=== PATIENT | male | born 1955 | race Caucasian/White ===

== ENCOUNTER 2017-02-11 19:06 | Inpatient (IN) | payer OTHER ==
[~2017-02-11] VITALS: Ht 177.8 cm; Wt 95.0 kg
[2017-02-11] VITALS (8 sets, daily range): BP systolic 88–112; BP diastolic 51–77; PULSE 55–68; RESP 18–20; TEMP 98; O2SAT 98–100
[~2017-02-11 19:06] MED LIST: ATEN1TAB74 PO; CEPH500C3 PO; DIOV160T60 PO; GLYB5TAB3 PO; METF-324 PO; TRAM50 PO
[2017-02-11] MEDS ORDERED: SODIUM CHLOR 0.9% 1000 ML INJ 1,000 ML IV SCH ×2 (19:25→23:25)
[2017-02-11] MEDS ORDERED: SODIUM CHLORIDE 0.9% FLUSH 10 ML FLUSH IV FLUSH PRN ×2 (19:30→23:30)
[2017-02-11] MEDS ORDERED: MORPHINE SULFATE 4 MG/ML INJ IV PUSH ONE ×2 (19:30→23:00)
[2017-02-11] MEDS ORDERED: ONDANSETRON HCL 4 MG/2 ML VIAL IVP ONE (19:30)
[2017-02-11 19:41] LABS: BASOPHIL # 0.1 TH/MM3 (0-0.2); BASOPHIL % 0.9 % (0.0-2.0); EOSINOPHIL # 0.2 TH/MM3 (0-0.4); HEMATOCRIT 44.5 % (39.0-51.0); HEMO FLAGS DIFF FINAL; LYMPH % 18.8 % (9.0-44.0); LYMPHOCYTE # 1.6 TH/MM3 (1.0-4.8); MEAN CELL VOLUME 93.3 FL (80.0-100.0); MEAN CORPUSCULAR HEMOGLOBIN 31.8 PG (27.0-34.0); MEAN CORPUSCULAR HGB CONC 34.1 % (32.0-36.0); MONO % 9.2 % (0.0-8.0); NEUT % 69.1 % (16.0-70.0); PLATELET COUNT 178 TH/MM3 (150-450); RED BLOOD COUNT 4.77 MIL/MM3 (4.50-5.90); RED CELL DISTRIBUTION WIDTH 15.2 % (11.6-17.2); WHITE BLOOD COUNT 8.6 TH/MM3 (4.0-11.0)
[2017-02-11 19:49] LABS: APTT (PATIENT) 27.8 SEC (24.3-30.1); INTERNATIONAL NORMALIZED RATIO 1.1 RATIO; PROTHROMBIN TIME - PATIENT 12.1 SEC (9.8-11.6)
[2017-02-11 20:05] LABS: ALT (GPT) 22 U/L (12-78)
[2017-02-11 20:07] LABS: ANION GAP 11 MEQ/L (5-15); AST (GOT) 32 U/L (15-37); BICARBONATE 24.4 MEQ/L (21.0-32.0); BLOOD UREA NITROGEN 47 MG/DL (7-18); CHLORIDE 97 MEQ/L (98-107); GLOMERULAR FILTRATION RATE 47 ML/MIN (>89); POTASSIUM 4.9 MEQ/L (3.5-5.1); SODIUM (NA) 132 MEQ/L (136-145)
[2017-02-11 20:08] LABS: ALKALINE PHOSPHATASE 82 U/L (45-117)
--- NOTE | 2017-02-11 20:10 | PD ---
HPI Chief Complaint: Abdominal Pain Time Seen by Provider: 19:25 Travel History International Travel<30 days: No Contact w/Intl Traveler<30days: No Traveled to known affect area: No History of Present Illness HPI Patient is a 61 year old male who comes in complaining of abdominal pain. He was found in triage to have low blood pressure. He says he increased is lactone and Lasix today. He also started Nadolol again today. He says the lips are very dry. He has some nausea, but no vomiting. He says he had to leave work early today due to the pain in his abdomen. He has an umbilical hernia, and he feels like it has gotten harder. He is followed by Dr. Wayne for this. He also has a history of cirrhosis and is following at the [facility] for this. He has not had fever or chills. He denies chest pain or shortness of breath. PFSH Past Medical History Anxiety: Yes Diabetes: Yes Patient Takes Glucophage: No Diminished Hearing: No Hypertension: Yes Medical other: Yes (chirosis of the liver) Tetanus Vaccination: Unknown Influenza Vaccination: Yes Past Surgical History Tonsillectomy: Yes Other Surgery: Yes (LEFT KIDNEY sugery (tube) A CHILD) Social History Alcohol Use: No Tobacco Use: No Substance Use: No Allergies-Medications (Allergen,Severity, Reaction): Coded Allergies: No Known Allergies (Unverified , 12/03/13) Reported Meds & Prescriptions Reported Meds & Active Scripts Active Reported Nadolol 20 Mg Tab 25 Mg PO DAILY Lasix (Furosemide) 40 Mg Tab 40 Mg PO BID Aldactone (Spironolactone) 100 Mg Tab 100 Mg PO BIDPC Review of Systems Except as stated in HPI: all other systems reviewed are Neg General / Constitutional: No: Fever, Chills HENT: No: Headaches, Lightheadedness Cardiovascular: No: Chest Pain or Discomfort Respiratory: No: Shortness of Breath Gastrointestinal: Positive: Nausea, Abdominal Pain, No: Vomiting Genitourinary: No: Dysuria Musculoskeletal: No: Myalgias, Edema Skin: No Rash, No Change in Pigmentation Neurologic: No: Dizziness Physical Exam Narrative GENERAL: Awake and alert, in mild distress due to pain. SKIN: Focused skin assessment warm/dry. HEAD: Atraumatic. Normocephalic. EYES: Pupils equal and round. No scleral icterus. ENT: Mucous membranes pink and moist. NECK: Trachea midline. No JVD. CARDIOVASCULAR: Regular rate and rhythm. No murmur appreciated. RESPIRATORY: No accessory muscle use. Clear to auscultation. Breath sounds equal bilaterally. GASTROINTESTINAL: Abdomen soft, nondistended. Large umbilical hernia, not reducible. Hernia is tender to palpation. MUSCULOSKELETAL: No obvious deformities. No clubbing. No cyanosis. No edema. NEUROLOGICAL: Awake and alert. No obvious cranial nerve deficits. Motor grossly within normal limits. Normal speech. PSYCHIATRIC: Appropriate mood and affect; insight and judgment normal. Data Data Last Documented VS Vital Signs Date Time Temp Pulse Resp B/P Pulse Ox O2 Delivery O2 Flow Rate FiO2 02/11/17 22:57 59 18 105/63 98 Room Air 02/11/17 19:08 98.0 Orders Complete Blood Count With Diff (02/11/17 19:25) Comprehensive Metabolic Panel (02/11/17 19:25) Lactic Acid (02/11/17 19:25) Prothrombin Time / Inr (Pt) (02/11/17 19:25) Act Partial Throm Time (Ptt) (02/11/17 19:25) Urinalysis - C+S If Indicated (02/11/17 19:25) Ua Includes Microscopic (02/11/17 19:25) Ct Abd/Pel W Iv Contrast(Rout) (02/11/17 19:25) Iv Access Insert/Monitor (02/11/17 19:25) Ecg Monitoring (02/11/17 19:25) Oximetry (02/11/17 19:25) Morphine Inj (Morphine Inj) (02/11/17 19:30) Ondansetron Inj (Zofran Inj) (02/11/17 19:30) Sodium Chlor 0.9% 1000 Ml Inj (Ns 1000 M (02/11/17 19:25) Sodium Chloride 0.9% Flush (Ns Flush) (02/11/17 19:30) Troponin I (02/11/17 19:25) Iohexol 350 Inj (Omnipaque 350 Inj) (02/11/17 21:12) Sodium Chlorid 0.9% 500 Ml Inj (Ns 500 M (02/11/17 21:45) Electrocardiogram (02/11/17 19:16) Insert Ng Tube (02/11/17 21:42) Morphine Inj (Morphine Inj) (02/11/17 23:00) Admit Order (Ed Use Only) (02/11/17 ) Admit To Inpatient (02/11/17 ) Vital Signs (Adult) Q4H (02/11/17 23:25) Activity Oob Ad Colleen (02/11/17 23:25) Intake + Output SABRINA.QSHIFT (02/11/17 23:25) Diet Npo (02/12/17 Breakfast) Sodium Chlor 0.9% 1000 Ml Inj (Ns 1000 M (02/11/17 23:25) Sodium Chloride 0.9% Flush (Ns Flush) (02/11/17 23:30) Sodium Chloride 0.9% Flush (Ns Flush) (02/12/17 09:00) Ondansetron Inj (Zofran Inj) (02/11/17 23:30) Basic Metabolic Panel (Bmp) (02/12/17 06:00) Complete Blood Count With Diff (02/12/17 06:00) Scd Bilateral/Knee High SABRINA.BID (02/11/17 23:25) Inpatient Certification (02/11/17 ) Place Ng Tube To Low Intermit (02/11/17 23:25) Morphine Inj (Morphine Inj) (02/11/17 23:30) Levofloxacin 500 Mg Premix Inj (Levaquin (02/12/17 00:00) Metronidazole 500 Mg Inj (Flagyl 500 Mg (02/12/17 00:00) Labs Laboratory Tests Test 02/11/17 19:25 White Blood Count 8.6 TH/MM3 Red Blood Count 4.77 MIL/MM3 Hemoglobin 15.2 GM/DL Hematocrit 44.5 % Mean Corpuscular Volume 93.3 FL Mean Corpuscular Hemoglobin 31.8 PG Mean Corpuscular Hemoglobin 34.1 % Concent Red Cell Distribution Width 15.2 % Platelet Count 178 TH/MM3 Mean Platelet Volume 8.8 FL Neutrophils (%) (Auto) 69.1 % Lymphocytes (%) (Auto) 18.8 % Monocytes (%) (Auto) 9.2 % Eosinophils (%) (Auto) 2.0 % Basophils (%) (Auto) 0.9 % Neutrophils # (Auto) 6.0 TH/MM3 Lymphocytes # (Auto) 1.6 TH/MM3 Monocytes # (Auto) 0.8 TH/MM3 Eosinophils # (Auto) 0.2 TH/MM3 Basophils # (Auto) 0.1 TH/MM3 CBC Comment DIFF FINAL Differential Comment Prothrombin Time 12.1 SEC Prothromb Time International 1.1 RATIO Ratio Activated Partial 27.8 SEC Thromboplast Time Sodium Level 132 MEQ/L Potassium Level 4.9 MEQ/L Chloride Level 97 MEQ/L Carbon Dioxide Level 24.4 MEQ/L Anion Gap 11 MEQ/L Blood Urea Nitrogen 47 MG/DL Creatinine 1.53 MG/DL Estimat Glomerular Filtration 47 ML/MIN Rate Random Glucose 120 MG/DL Lactic Acid Level 1.6 mmol/L Calcium Level 9.6 MG/DL Total Bilirubin 1.0 MG/DL Aspartate Amino Transf 32 U/L (AST/SGOT) Alanine Aminotransferase 22 U/L (ALT/SGPT) Alkaline Phosphatase 82 U/L Troponin I LESS THAN 0.02 NG/ML Total Protein 8.9 GM/DL Albumin 3.1 GM/DL MDM Medical Decision Making Medical Screen Exam Complete: Yes Emergency Medical Condition: Yes Medical Record Reviewed: Yes Differential Diagnosis Strangulated hernia versus incarcerated hernia versus hypotension versus dehydration Narrative Course Patient is a 61-year-old male who comes in complaining of abdominal pain. He has had a hypotensive in triage. He was brought back to a room, IV established , connected to the cafeteria monitor. Patient was given a bolus of IV fluids with improvement of his blood pressure. Exam shows an incarcerated hernia. Labs show no acute abnormalities, Lactic acid is 1.5, WBC count is within normal limits. CT abd/pelvis shows incarcerated hernia with SBO. Last 24 hours Impressions Abdomen/Pelvis CT 02/11/171924 Signed Impressions: Service Date/Time: Saturday, February 11, 2017 20:57 - CONCLUSION: Incarcerated ventral hernia containing fluid and a loop of small bowel with small bowel obstruction. No free air. Trace free fluid. Liver cirrhosis. Nonobstructing left renal calculi. Small left effusion. Jordi Becerra MD I attempted to reduce the hernia with Morphine, without success. I spoke with Dr. Cooper regarding the patient who accepted the patient for admission. Diagnosis Primary Impression: Incarcerated hernia Additional Impression: SBO (small bowel obstruction) Admitting Information Admitting Physician Requests: Admit Condition: Stable Gena Escudero MD Feb 11, 2017 20:10
[2017-02-11] MEDS ORDERED: FURO1TAB60 PO (20:53)
[2017-02-11] MEDS ORDERED: NADO20TA PO (20:53)
[2017-02-11] MEDS ORDERED: ALDA100T PO (20:53)
[2017-02-11] MEDS ORDERED: IOHEXOL 350 MG/ML 10 ML VIAL (for RAD DIAG) IV ONE (21:12)
--- NOTE | 2017-02-11 21:22 | RADRPT ---
EXAM DATE/TIME: 02/11/2017 20:57 [place] COMPARISON: No previous studies available for comparison. INDICATIONS : Diffuse abdominal pain. IV CONTRAST: 90 cc Omnipaque 350 (iohexol) IV ORAL CONTRAST: No oral contrast ingested. RADIATION DOSE: 15.54 CTDIvol (mGy) MEDICAL HISTORY : Hernia, umbilical. Cirrhosis. Hypertension.Diabetes. SURGICAL HISTORY : None. ENCOUNTER: Initial ACUITY: 2 days PAIN SCALE: 9/10 LOCATION: All quadrants. TECHNIQUE: Volumetric scanning of the abdomen and pelvis was performed. Using automated exposure control and ad justment of the mA and/or kV according to patient size, radiation dose was kept as low as reasonably achievable to obtain optimal diagnostic quality images. DICOM format image data is available electro nically for review and comparison. FINDINGS: There is a small left-sided pleural effusion. There is a ventral hernia containing a loop of small bowel and fluid measuring up to about 13 cm in d iameter. This appears to be incarcerated and is associated with a small bowel obstruction. There is d istal decompression of small bowel. The liver is small and slightly nodular characteristic of liver cirrhosis. Spleen is mildly enlarged. Adrenals and right kidney unremarkable. There is mild dilatation of the left renal pelvis but no ure teral or bladder calculi are seen. Nonobstructing calcifications in the upper pole and lower pole lef t kidney measuring up to about a centimeter in diameter. Left renal cyst also present. There is mild anasarca. No free air. Trace free fluid in the abdomen and pelvis. CONCLUSION: Incarcerated ventral hernia containing fluid and a loop of small bowel with small bowel obstruction. No free air. Trace free fluid. Liver cirrhosis. Nonobstructing left renal calculi. Small left effusion. Jordi Becerra MD on February 11, 2017 at 21:15 Board Certified Radiologist. This report was verified electronically.
[2017-02-11] MEDS ORDERED: SODIUM CHLORID 0.9% 500 ML INJ 500 ML IV ONE (21:45)
[2017-02-11] MEDS ORDERED: MORPHINE SULFATE 4 MG/ML INJ IV PUSH PRN (23:30)
[2017-02-11] MEDS ORDERED: ONDANSETRON HCL 4 MG/2 ML VIAL IV PRN (23:30)
[2017-02-11] MEDS: LEVOFLOXACIN 500 MG PREMIX INJ 100 ML IV SCH (23:50)
[2017-02-11 23:57] LABS: BLOOD, URINE NEG (NEG); COMMENT (UR) CULTURE INDICATED; CULTURE IF INDICATED CULTURE INDICATED; GLUCOSE,URINE NEG (NEG); KETONE, URINE 10 mg/dL (NEG); MUCUS URINE FEW /lpf (OCC); NITRITE,URINE NEG (NEG); SQUAMOUS EPITHELIAL CELL URINE <1 /hpf (0-5); URINE COLOR YELLOW (YELLW/STRAW)
[2017-02-12] VITALS (8 sets, daily range): BP systolic 86–115; BP diastolic 58–68; PULSE 54–68; RESP 16–18; TEMP 96.6–98.1; O2SAT 96–100
[2017-02-12] MEDS: metroNIDAZOLE 500 MG INJ 100 ML IV SCH ×3 (01:38→17:05)
[2017-02-12] MEDS ORDERED: POVIDONE IODINE 5% (ANTISEPSIS KIT) 4 APPLICATIONS EACH NARE PRN (04:15)
[2017-02-12] MEDS ORDERED: CHLORHEXIDINE GLUCONATE 2 % 1 PACK (2 CLOTHS) TOPICAL PRN (04:15)
[2017-02-12] MEDS ORDERED: LACTATED RINGER'S 1000 ML IV PRN (04:15)
[2017-02-12] MEDS ORDERED: INSULIN HUMAN REGULAR 1,000 UNITS/10 ML VIAL SQ PRN (04:15)
[2017-02-12] MEDS ORDERED: SODIUM CHLORID 0.9% 500 ML INJ 500 ML IV PRN (04:30)
--- NOTE | 2017-02-12 08:19 | HHI.HP ---
[facility] Service General surgery Primary Care Physician Jose G Steve M.D. 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 reyes who developed incarceration of his umbilical hernia yesterday morning. He was unable to reduce it and developed abdominal pain. He had nausea and small amount of emesis. He has felt constipated and has not passed flatus. He was evaluated in the emergency department in the umbilical hernia was unable to be reduced. His white blood count was normal with evidence of acute kidney injury on chemistry. CT abdomen and pelvis revealed small bowel incarcerated umbilical hernia causing bowel obstruction. There was a small amount of ascites. He has never had any operations on his abdomen. He has child Pena class B cirrhosis. He states that his meld score is 9, although based on today' s labs it is 17. He is followed by Dr. Talavera in [place] as well as at [facility]. He has had 2 elective paracenteses in the past, most recently 6 weeks ago. He has had banding of esophageal varices but never upper GI bleeding. He states that he has lost 200 pounds since his diagnosis of cirrhosis. Review of Systems Constitutional: DENIES: Fever, Chills Eyes: DENIES: Eye inflammation, Eye pain Cardiovascular: DENIES: Chest pain, Palpitations Gastrointestinal: COMPLAINS OF: Abdominal pain, Nausea, Vomiting Musculoskeletal: DENIES: Muscle aches, Stiffness Integumentary: DENIES: Pruritus, Rash Neurologic: DENIES: Seizures, Speech Problems Psychiatric: DENIES: Hallucinations, Agitation Past Family Social History Past Medical History Cirrhosis Esophageal varices History of type 2 diabetes but now off medications after weight loss Past Surgical History Tonsillectomy Reported Medications Reported Meds & Active Scripts Active Reported Nadolol 20 Mg Tab 25 Mg PO DAILY Lasix (Furosemide) 40 Mg Tab 40 Mg PO BID Aldactone (Spironolactone) 100 Mg Tab 100 Mg PO BIDPC Allergies: Coded Allergies: No Known Allergies (Unverified , 12/03/13) Active Ordered Medications Current Medications Medications (Trade) Dose Ordered Sig/Esme Route Start Time Stop Time Status Last Admin (NS 1000 ml Inj) 1,000 ml @ 125 mls/hr Q8H IV 02/11/17 23:25 02/11/17 23:49 (NS Flush) 2 ml UNSCH PRN IV FLUSH 02/11/17 23:30 Sodium Chloride 2 ml 2 ml BID IV FLUSH 02/12/17 09:00 Levofloxacin/ Dextrose 100 ml @ 100 mls/hr Q24H IV 02/12/17 00:00 02/11/17 23:50 (Flagyl 500 Mg Inj) 100 ml @ 100 mls/hr Q8H IV 02/12/17 00:00 02/12/17 01:38 (Zofran Inj) 4 mg Q6H PRN IV 02/11/17 23:30 Morphine Sulfate 2 mg 2 mg Q3H PRN IV PUSH 02/11/17 23:30 Lactated Ringer's 1,000 ml @ 30 mls/hr Q24H PRN IV 02/12/17 04:15 02/15/17 04:14 (NS 500 ml Inj) 500 ml @ 0 mls/hr BOLUS PRN IV 02/12/17 04:30 02/13/17 04:29 02/12/17 04:31 Family History Noncontributory Social History No alcohol tobacco or drug use. Physical Exam Vital Signs Vital Signs Date Time Temp Pulse Resp B/P Pulse Ox O2 Delivery O2 Flow Rate FiO2 02/12/17 08:01 97.8 60 18 115/67 98 02/12/17 05:15 58 106/68 02/12/17 03:25 97.2 68 16 86/59 96 02/12/17 01:00 96.6 62 18 115/67 97 02/12/17 00:41 57 18 92/58 96 02/11/17 23:34 68 18 97/63 98 Room Air 02/11/17 22:57 59 18 105/63 98 Room Air 02/11/17 22:01 58 18 99/63 100 Room Air 02/11/17 21:28 61 18 102/63 100 02/11/17 20:34 57 18 109/60 100 Room Air 02/11/17 20:10 61 18 112/77 100 Room Air 02/11/17 19:16 60 20 91/58 100 02/11/17 19:08 98.0 55 18 88/51 100 Room Air Physical Exam GENERAL: Awake and alert. No acute distress. Cooperative. Obese. HEAD: Normocephalic. Atraumatic. EYES: Pupils equal round and reactive to light bilaterally. No scleral icterus. ENT: Moist oral mucosa. NG tube in place with minimal output. NECK: Trachea midline. CHEST: Lungs clear to auscultation bilaterally with no wheezing or rhonchi. No respiratory distress. CARDIOVASCULAR: Regular rate and rhythm. ABDOMEN: Round with extra redundant skin. Soft and overall nontender. At the umbilicus there's a fairly large incarcerated hernia which is soft and minimally tender but unable to be reduced. There is no erythema of the skin. There is some purple color right at the umbilicus which looks more chronic. EXTREMITIES: No cyanosis or edema. SKIN: Warm, dry, nonjaundiced. Laboratory Laboratory Tests Test 02/11/17 02/11/17 19:25 23:45 White Blood Count 8.6 Red Blood Count 4.77 Hemoglobin 15.2 Hematocrit 44.5 Mean Corpuscular Volume 93.3 Mean Corpuscular Hemoglobin 31.8 Mean Corpuscular Hemoglobin 34.1 Concent Red Cell Distribution Width 15.2 Platelet Count 178 Mean Platelet Volume 8.8 Neutrophils (%) (Auto) 69.1 Lymphocytes (%) (Auto) 18.8 Monocytes (%) (Auto) 9.2 Eosinophils (%) (Auto) 2.0 Basophils (%) (Auto) 0.9 Neutrophils # (Auto) 6.0 Lymphocytes # (Auto) 1.6 Monocytes # (Auto) 0.8 Eosinophils # (Auto) 0.2 Basophils # (Auto) 0.1 CBC Comment DIFF FINAL Differential Comment Prothrombin Time 12.1 Prothromb Time International 1.1 Ratio Activated Partial 27.8 Thromboplast Time Sodium Level 132 Potassium Level 4.9 Chloride Level 97 Carbon Dioxide Level 24.4 Anion Gap 11 Blood Urea Nitrogen 47 Creatinine 1.53 Estimat Glomerular Filtration 47 Rate Random Glucose 120 Lactic Acid Level 1.6 Calcium Level 9.6 Total Bilirubin 1.0 Aspartate Amino Transf 32 (AST/SGOT) Alanine Aminotransferase 22 (ALT/SGPT) Alkaline Phosphatase 82 Troponin I LESS THAN 0.02 Total Protein 8.9 Albumin 3.1 Urine Color YELLOW Urine Turbidity CLEAR Urine pH 7.0 Urine Specific [place] 1.028 Urine Protein TRACE Urine Glucose (UA) NEG Urine Ketones 10 Urine Occult Blood NEG Urine Nitrite NEG Urine Bilirubin NEG Urine Urobilinogen LESS THAN 2.0 Urine Leukocyte Esterase LARGE Urine RBC LESS THAN 1 Urine WBC 31 Urine Squamous Epithelial <1 Cells Urine Mucus FEW Microscopic Urinalysis Comment CULTURE INDICATED Date/Time Procedure Status Source Growth 02/11/17 23:45 Urine Culture Received Urine Clean Catch Pending Result Diagram: 02/11/17192402/11/171924 Imaging Last Impressions Abdomen/Pelvis CT 02/11/171924 Signed Impressions: Service Date/Time: Saturday, February 11, 2017 20:57 - CONCLUSION: Incarcerated ventral hernia containing fluid and a loop of small bowel with small bowel obstruction. No free air. Trace free fluid. Liver cirrhosis. Nonobstructing left renal calculi. Small left effusion. Jrodi Becerra MD Assessment and Plan Assessment and Plan 61-year-old male with a child class B cirrhosis from Gan with incarcerated umbilical hernia causing small bowel obstruction. He has acute kidney injury. Meld score currently is 17. He has had 2 paracenteses in the past and has only minimal ascites on CT scan. Unfortunately, I am unable to reduce the umbilical hernia. He will require umbilical hernia repair. I will excise the umbilicus. I discussed that if bowel is compromised he will require resection. I'll consider mesh placement. I discussed risks in detail bluntly with the patient. He has an approximately 30% mortality as well as increased risk of hernia recurrence, poor healing, infection. He understands and desires to proceed as necessary. Kenneth,Juan Luis DICK Feb 12, 2017 08:19
[2017-02-12 08:25] LABS: AUTOMATED NEUTROPHIL # 5.1 TH/MM3 (1.8-7.7); BASOPHIL % 0.3 % (0.0-2.0); EOSINOPHIL % 0.6 % (0.0-4.0); HEMATOCRIT 42.6 % (39.0-51.0); HEMO FLAGS DIFF FINAL; LYMPH % 11.7 % (9.0-44.0); LYMPHOCYTE # 0.8 TH/MM3 (1.0-4.8); MEAN CELL VOLUME 94.2 FL (80.0-100.0); MEAN CORPUSCULAR HEMOGLOBIN 31.8 PG (27.0-34.0); MEAN CORPUSCULAR HGB CONC 33.8 % (32.0-36.0); MONO % 9.7 % (0.0-8.0); NEUT % 77.7 % (16.0-70.0); PLATELET COUNT 125 TH/MM3 (150-450); RED BLOOD COUNT 4.52 MIL/MM3 (4.50-5.90); RED CELL DISTRIBUTION WIDTH 15.5 % (11.6-17.2); WHITE BLOOD COUNT 6.5 TH/MM3 (4.0-11.0)
[2017-02-12] MEDS: SODIUM CHLORIDE 0.9% FLUSH 10 ML FLUSH IV FLUSH SCH ×2 (09:00→22:23)
[2017-02-12 09:02] LABS: BICARBONATE 26.2 MEQ/L (21.0-32.0); POTASSIUM 4.6 MEQ/L (3.5-5.1)
--- NOTE | 2017-02-12 09:35 | PD.CONS ---
HPI Service [facility] Hospitalists Consult Requested By Primary Care Physician Jose G Steve M.D. 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 Says his most recent Meld score had been 9. 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 yesterday had some vomiting and umbilical pain. did have bm yesterday morning. In ED CT showed obstruction due to incarcerated umbilical hernia. Pt is scheduled for OR today at 11am. His labs show some stacie and he is getting ivf NS 125ml/hr. Denies any sob or fluid retention. Last paracentesis over a month ago and he says 5L removed. Review of Systems Other abdomen pain umbilical hernia more firm vomited. Past Family Social History Past Medical History cirrhosis. nafld. says meld score has been "9" follows with [facility] ER. s/p esophageal varices banding. paracentesis x 2. last one 1 month ago No hx encephalopathy/variceal bleed/sbp umbilical hernia dm 2 in past. off meds for over a year. last bun/cr 19/.7 12[facility] turp for bph Reported Medications Nadolol 20 Mg Tab 25 Mg PO DAILY Lasix (Furosemide) 40 Mg Tab 40 Mg PO BID Aldactone (Spironolactone) 100 Mg Tab 100 Mg PO BIDPC Allergies: Coded Allergies: No Known Allergies (Unverified , 12/03/13) Family History nc Social History no etoh/tob Physical Exam Vital Signs nad oriented heart reg lung cta abd s/nt/bs with occasional high pitched tinkling sound. umbilical hernia noted..nontender. ext no edema Vital Signs Date Time Temp Pulse Resp B/P Pulse Ox O2 Delivery O2 Flow Rate FiO2 02/12/17 08:01 97.8 60 18 115/67 98 02/12/17 05:15 58 106/68 02/12/17 03:25 97.2 68 16 86/59 96 02/12/17 01:00 96.6 62 18 115/67 97 02/12/17 00:41 57 18 92/58 96 02/11/17 23:34 68 18 97/63 98 Room Air 02/11/17 22:57 59 18 105/63 98 Room Air 02/11/17 22:01 58 18 99/63 100 Room Air 02/11/17 21:28 61 18 102/63 100 02/11/17 20:34 57 18 109/60 100 Room Air 02/11/17 20:10 61 18 112/77 100 Room Air 02/11/17 19:16 60 20 91/58 100 02/11/17 19:08 98.0 55 18 88/51 100 Room Air Laboratory Laboratory Tests Test 02/11/17 02/11/17 02/12/17 19:25 23:45 07:44 White Blood Count 8.6 6.5 Red Blood Count 4.77 4.52 Hemoglobin 15.2 14.4 Hematocrit 44.5 42.6 Mean Corpuscular Volume 93.3 94.2 Mean Corpuscular Hemoglobin 31.8 31.8 Mean Corpuscular Hemoglobin 34.1 33.8 Concent Red Cell Distribution Width 15.2 15.5 Platelet Count 178 125 Mean Platelet Volume 8.8 8.7 Neutrophils (%) (Auto) 69.1 77.7 Lymphocytes (%) (Auto) 18.8 11.7 Monocytes (%) (Auto) 9.2 9.7 Eosinophils (%) (Auto) 2.0 0.6 Basophils (%) (Auto) 0.9 0.3 Neutrophils # (Auto) 6.0 5.1 Lymphocytes # (Auto) 1.6 0.8 Monocytes # (Auto) 0.8 0.6 Eosinophils # (Auto) 0.2 0.0 Basophils # (Auto) 0.1 0.0 CBC Comment DIFF FINAL DIFF FINAL Differential Comment Prothrombin Time 12.1 Prothromb Time International 1.1 Ratio Activated Partial 27.8 Thromboplast Time Sodium Level 132 137 Potassium Level 4.9 4.6 Chloride Level 97 102 Carbon Dioxide Level 24.4 26.2 Anion Gap 11 9 Blood Urea Nitrogen 47 44 Creatinine 1.53 1.37 Estimat Glomerular Filtration 47 53 Rate Random Glucose 120 116 Lactic Acid Level 1.6 Calcium Level 9.6 8.9 Total Bilirubin 1.0 Aspartate Amino Transf 32 (AST/SGOT) Alanine Aminotransferase 22 (ALT/SGPT) Alkaline Phosphatase 82 Troponin I LESS THAN 0.02 Total Protein 8.9 Albumin 3.1 Urine Color YELLOW Urine Turbidity CLEAR Urine pH 7.0 Urine Specific [place] 1.028 Urine Protein TRACE Urine Glucose (UA) NEG Urine Ketones 10 Urine Occult Blood NEG Urine Nitrite NEG Urine Bilirubin NEG Urine Urobilinogen LESS THAN 2.0 Urine Leukocyte Esterase LARGE Urine RBC LESS THAN 1 Urine WBC 31 Urine Squamous Epithelial <1 Cells Urine Mucus FEW Microscopic Urinalysis Comment CULTURE INDICATED Date/Time Procedure Status Source Growth 02/11/17 23:45 Urine Culture Received Urine Clean Catch Pending Result Diagram: 02/12/17 0744 02/12/17 0744 Assessment and Plan Problem List: (1) SBO (small bowel obstruction) Status: Acute Plan: Pt is 61 yr old with Nafld Cirrhosis. hx esophageal banding and ascites. Presents with sbo due to umbilical hernia STACIE probably due to dehydration/prerenal cause ( poor po yesterday plus his diuretics were increased over past 2 weeks....both lasix/aldactone) ...monitor for ATN or HRS. ekg: sinus. rbbb. coags ok. plt 125 Going to OR today. Pt understands higher risk due to his underlying cirrhosis. he accepts and wishes to proceed. lower ivf and monitor for volume overload. diuretics on hold bp to low to support his nadolol for now. scds (2) Incarcerated hernia Status: Acute Plan: above (3) Cirrhosis Status: Chronic (4) STACIE (acute kidney injury) Status: Acute Plan: above Wily Stoll MD Feb 12, 2017 09:35
[2017-02-12] MEDS ORDERED: BUPIVACAINE/EPINEPHRINE 0.25% 50 ML VIAL ONE (11:40)
[2017-02-12] MEDS ORDERED: PHENYLEPH/NS 1000 MCG/10 ML SYR IV ONE (12:00)
[2017-02-12] MEDS ORDERED: SODIUM CHLORID 0.9% 500 ML INJ 500 ML IV ONE (12:00)
[2017-02-12] MEDS ORDERED: ePHEDrine/NS 25 MG/5 ML SYR IV ONE (12:00)
[2017-02-12] MEDS ORDERED: PROPOFOL 200 MG/20 ML AMP IV ONE (12:00)
[2017-02-12] MEDS ORDERED: PHENYLEPHRINE HCL 10 MG/ML VIAL IV ONE (12:00)
[2017-02-12] MEDS ORDERED: ONDANSETRON HCL 4 MG/2 ML VIAL IV PUSH ONE (12:00)
[2017-02-12] MEDS ORDERED: SODIUM CHLOR 0.9% 250 ML INJ 250 ML IV ONE (12:00)
[2017-02-12] MEDS ORDERED: fentaNYL CITRATE 250 MCG/5 ML AMP ONE (14:06)
[2017-02-12] MEDS ORDERED: MIDAZOLAM HCL 2 MG/2 ML VIAL ONE (14:06)
--- NOTE | 2017-02-12 15:00 | EKG ---
Date Performed: 02/11/2017 Time Performed: 19:16:41 PTAGE: 61 years EKG: SINUS BRADYCARDIA WITH FIRST DEGREE AV BLOCK INDETERMINATE AXIS RIGHT BUNDLE BRANCH BLOCK W hen compared to previous tracing, right bundle brach block is New. ABNORMAL ECG PREVIOUS TRACING : 09/27/2007 18.25 DOCTOR: Isidro Beasley Interpretating Date/Time 02/12/2017 14:59:53
[2017-02-12] MEDS ORDERED: DO NOT ADM ANY ANTICOAGULANT DRUGS PRN (16:00)
[2017-02-12] MEDS: SODIUM CHLOR 0.9% 1000 ML INJ 1,000 ML IV SCH (22:23)
[2017-02-13] VITALS: BP 103/62; PULSE 64; RESP 16; TEMP 96.9; O2SAT 100
[2017-02-13] MEDS: metroNIDAZOLE 500 MG INJ 100 ML IV SCH ×3 (01:11→17:41)
[2017-02-13] MEDS: LEVOFLOXACIN 500 MG PREMIX INJ 100 ML IV SCH (01:11)
[2017-02-13 04:00] VITALS: BP 109/65; PULSE 66; RESP 18; TEMP 97.5; O2SAT 97
[2017-02-13] MEDS: SODIUM CHLOR 0.9% 1000 ML INJ 1,000 ML IV SCH ×2 (04:57→10:00)
[2017-02-13 07:56] VITALS: BP 104/56; PULSE 71; RESP 18; TEMP 98.4; O2SAT 97
[2017-02-13 08:17] LABS: BICARBONATE 26.3 MEQ/L (21.0-32.0); POTASSIUM 4.7 MEQ/L (3.5-5.1)
[2017-02-13] MEDS: SODIUM CHLORIDE 0.9% FLUSH 10 ML FLUSH IV FLUSH SCH ×2 (09:34→20:29)
--- NOTE | 2017-02-13 09:37 | HHI.PR ---
Subjective Remarks wants to try ice chips no flatus yet Objective Vitals ngt to liws heart reg lung cta abd minimal bs/bandaged over umbilical surgical site ext no edema Vital Signs Date Time Temp Pulse Resp B/P Pulse Ox O2 Delivery O2 Flow Rate FiO2 02/13/17 07:56 98.4 71 18 104/56 97 02/13/17 04:00 97.5 66 18 109/65 97 02/13/17 00:00 96.9 64 16 103/62 100 02/12/17 20:00 97.9 65 16 100/61 98 02/12/17 19:32 Nasal Cannula 2.00 02/12/17 14:52 96.8 61 18 96/60 100 02/12/17 14:40 75 14 95/57 99 Nasal Cannula 2 02/12/17 14:30 98.5 62 13 97/55 100 Nasal Cannula 2 02/12/17 14:15 62 13 107/60 100 Nasal Cannula 2 02/12/17 14:00 98.2 62 16 103/57 98 Nasal Cannula 2 02/12/17 11:00 98.1 54 18 102/65 98 02/12/17 02/12/17 02/13/17 15:00 23:00 07:00 Intake Total 1800 ml 811 ml 531 ml Output Total 725 ml 550 ml 350 ml Balance 1075 ml 261 ml 181 ml Intake Oral 0 ml 0 ml 0 ml IV Total 811 ml 531 ml Other 1800 ml Output Urine Total 675 ml 550 ml 350 ml Gastric Drainage Total 0 ml 0 ml Estimated Blood Loss 50 ml # Voids 2 # Bowel Movements 0 0 0 Result Diagram: 02/12/17 0744 02/13/17 0706 A/P Problem List: (1) SBO (small bowel obstruction) Status: Acute Plan: Pt is 61 yr old with Nafld Cirrhosis. hx esophageal banding and ascites. Presents with sbo due to umbilical hernia STACIE probably due to dehydration/prerenal cause ( poor po yesterday plus his diuretics were increased over past 2 weeks....both lasix/aldactone) ...monitor for ATN or HRS. ekg: sinus. rbbb. coags ok. plt 125 -s/p umbilical incarcerated hernia repair 02/12 doing well post op. renal function improving and pt remains compensated from cardiopulmonary and cirrhosis standpoint. -cont scd's - advance diet per GS -PT and oob today -lower ivf .....diuretics still on hold. monitor for volume overload. (2) Incarcerated hernia Status: Acute Plan: above (3) Cirrhosis Status: Chronic (4) STACIE (acute kidney injury) Status: Acute Plan: above Wily Stoll MD Feb 13, 2017 09:37
[2017-02-13 11:30] VITALS: BP 95/56; PULSE 67; RESP 18; TEMP 97.2; O2SAT 95
--- NOTE | 2017-02-13 13:45 | HHI.PR ---
Subjective Subjective Notes He is feeling well. Minimal ng output. Objective Vitals/I&O Vital Signs Date Time Temp Pulse Resp B/P Pulse Ox O2 Delivery O2 Flow Rate FiO2 02/13/17 11:30 97.2 67 18 95/56 95 02/12/17 19:32 Nasal Cannula 2.00 Labs Laboratory Tests Test 02/13/17 07:06 Sodium Level 138 Potassium Level 4.7 Chloride Level 107 Carbon Dioxide Level 26.3 Anion Gap 5 Blood Urea Nitrogen 32 Creatinine 1.20 Estimat Glomerular Filtration 62 Rate Random Glucose 105 Calcium Level 8.6 Date/Time Procedure Status Source Growth 02/11/17 23:45 Urine Culture - Preliminary Resulted Urine Clean Catch Group D Enterococcus Radiology Last Impressions Abdomen/Pelvis CT 02/11/171924 Signed Impressions: Service Date/Time: Saturday, February 11, 2017 20:57 - CONCLUSION: Incarcerated ventral hernia containing fluid and a loop of small bowel with small bowel obstruction. No free air. Trace free fluid. Liver cirrhosis. Nonobstructing left renal calculi. Small left effusion. Jordi Becerra MD Narrative Exam NAD Abd: soft, bandage c/d/i, ng minimal output A/P Assessment and Plan 61 yo M POD 1 s/p umbilical hernia repair with mesh for incarcerated small bowel. 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 Stable. Min ng output. D/c ng. D/c vines. Ambulate. Clears. Juan Luis Cooper MD Feb 13, 2017 13:45
--- NOTE | 2017-02-13 13:54 | PD.OP ---
cc: Juan Luis Cooper MD Operative Report Date of Surgery: Feb 13, 2017 Preoperative Diagnosis: (1) Incarcerated hernia (2) Cirrhosis (3) SBO (small bowel obstruction) Postoperative Diagnosis: (1) Cirrhosis (2) SBO (small bowel obstruction) (3) Incarcerated hernia Procedure: Primary repair of incarcerated umbilical hernia with mesh Anesthesia: ADRIEN Surgeon: Juan Luis Cooper Mime Artist(s): Saige Lee Operation and Findings: EBL: 10 cc Operative findings: The patient had small bowel incarcerated in an approximately 3 cm umbilical fascial defect. The small bowel was viable and was reduced into the abdomen after enlarging the fascial incision. The fascia was closed and mesh placed. Procedure in detail: The patient was taken to the operating room and placed in the supine position. General endotracheal anesthesia was induced. The abdomen was prepped and draped in usual sterile fashion and a surgical timeout was performed to verify correct patient procedure and site. The patient had a large protruding umbilical hernia and an elliptical incision was made to excise the overlying skin and subcutaneous tissue. The umbilicus itself was also excised. The large hernia sac was encountered and it was opened. There was some ascitic fluid present. Small bowel was encountered which was incarcerated and dilated and appeared viable. The fascial defect was approximately 3 cm in diameter. The lower portion of the fascia was enlarged and the bowel was able to be reduced back into the abdominal cavity. The majority of the hernia sac was excised. There was a huge umbilical vein secondary to portal hypertension crossing through the fascia and this required ligation with 0 silk suture and transection. There were a number of branches of the umbilical vein which were tied with 2-0 or 3-0 silk sutures. The fascia was cleared of surrounding fat for a number of centimeters in each direction using electrocautery. The fascial defect was then closed vertically with interrupted 0 Prolene sutures using a far near near far technique. Ultra Pro advanced mesh was cut to 14 x 12 cm and placed oriented vertically with wide coverage of the incision in onlay fashion and fixed with 2-0 Prolene suture. Hemostasis was achieved. The subcutaneous tissue was closed in layers using 2-0 and 3-0 Vicryl suture and the skin closed with a running 3-0 nylon due to the patient's liver disease and ascites. The patient tolerated the procedure was extubated and taken to PACU in stable condition. Juan Luis Cooper MD Feb 13, 2017 13:54
[2017-02-13 15:15] VITALS: BP 98/60; PULSE 61; RESP 18; TEMP 98.8; O2SAT 98
[2017-02-13 19:00] VITALS: BP 113/68; PULSE 75; RESP 16; TEMP 98.4; O2SAT 97
[2017-02-14] VITALS: BP 109/59; PULSE 66; RESP 16; TEMP 98.1; O2SAT 95
[2017-02-14] MEDS: SODIUM CHLOR 0.9% 1000 ML INJ 1,000 ML IV SCH (00:03)
[2017-02-14] MEDS: metroNIDAZOLE 500 MG INJ 100 ML IV SCH (00:03)
[2017-02-14] MEDS: LEVOFLOXACIN 500 MG PREMIX INJ 100 ML IV SCH (00:05)
[2017-02-14 04:00] VITALS: BP 99/58; PULSE 71; RESP 17; TEMP 98.7; O2SAT 94
[2017-02-14 07:51] LABS: POTASSIUM 4.4 MEQ/L (3.5-5.1)
[2017-02-14 08:00] VITALS: BP 102/65; PULSE 68; RESP 18; TEMP 98.4; O2SAT 95
--- NOTE | 2017-02-14 08:48 | HHI.PR ---
Subjective Subjective Notes Tolerating clear and passing flatus. Has ambulated. not using any pain meds. Objective Vitals/I&O Vital Signs Date Time Temp Pulse Resp B/P Pulse Ox O2 Delivery O2 Flow Rate FiO2 02/14/17 04:00 98.7 71 17 99/58 94 02/13/17 19:02 Room Air 02/12/17 19:32 2.00 Labs Laboratory Tests Test 02/14/17 06:54 Sodium Level 142 Potassium Level 4.4 Chloride Level 110 Carbon Dioxide Level 24.0 Anion Gap 8 Blood Urea Nitrogen 26 Creatinine 1.08 Estimat Glomerular Filtration 70 Rate Random Glucose 100 Calcium Level 8.6 Date/Time Procedure Status Source Growth 02/11/17 23:45 Urine Culture - Preliminary Resulted Urine Clean Catch Group D Enterococcus Radiology Last Impressions Abdomen/Pelvis CT 02/11/171924 Signed Impressions: Service Date/Time: Saturday, February 11, 2017 20:57 - CONCLUSION: Incarcerated ventral hernia containing fluid and a loop of small bowel with small bowel obstruction. No free air. Trace free fluid. Liver cirrhosis. Nonobstructing left renal calculi. Small left effusion. Jordi Becerra MD Narrative Exam NAD Abd: soft, bandage c/d/i, nondistended A/P Assessment and Plan 61 yo M POD 2 s/p umbilical hernia repair with mesh for incarcerated small bowel. 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 Stable. +flatus. Start regular diet. Stop antibiotics. Ambulate. Check LFTs tomorrow. Renal fxn normalizing may benefit from restarting diuretics soon. Juan Luis Cooper MD Feb 14, 2017 08:48
[2017-02-14] MEDS: SODIUM CHLORIDE 0.9% FLUSH 10 ML FLUSH IV FLUSH SCH ×2 (09:00→20:50)
--- NOTE | 2017-02-14 11:51 | HHI.PR ---
Subjective Remarks doing great. no fluid retention. Objective Vitals heart reg lung cta abd s/bs/umbilical dressing ext no edema Vital Signs Date Time Temp Pulse Resp B/P Pulse Ox O2 Delivery O2 Flow Rate FiO2 02/14/17 08:00 98.4 68 18 102/65 95 02/14/17 04:00 98.7 71 17 99/58 94 02/14/17 00:00 98.1 66 16 109/59 95 02/13/17 19:02 Room Air 02/13/17 19:00 98.4 75 16 113/68 97 02/13/17 15:15 98.8 61 18 98/60 98 02/13/17 02/13/17 02/14/17 14:59 22:59 06:59 Intake Total 480 ml 996 ml 1322 ml Output Total 700 ml 250 ml 1020 ml Balance -220 ml 746 ml 302 ml Intake Oral 480 ml 480 ml IV Total 996 ml 842 ml Output Urine Total 700 ml 250 ml 1020 ml # Voids 0 # Bowel Movements 0 0 Result Diagram: 02/12/17 0744 02/14/17 0654 A/P Problem List: (1) SBO (small bowel obstruction) Status: Acute Plan: Pt is 61 yr old with Nafld Cirrhosis. hx esophageal banding and ascites. Presents with sbo due to umbilical hernia STACIE probably due to dehydration/prerenal cause ( poor po yesterday plus his diuretics were increased over past 2 weeks....both lasix/aldactone) ...monitor for ATN or HRS. ekg: sinus. rbbb. coags ok. plt 125 -s/p umbilical incarcerated hernia repair 02/12 doing well post op. renal function improving and pt remains compensated from cardiopulmonary and cirrhosis standpoint. -cont scd's - advance diet per GS -PT and oob today -dc fluids and resume lower dose diuretic in AM He will need to f/u with GI soon as he believes they increased his diuretic dose to much on last visit. (2) Incarcerated hernia Status: Acute Plan: above (3) Cirrhosis Status: Chronic (4) STACIE (acute kidney injury) Status: Acute Plan: above Wily Stoll MD Feb 14, 2017 11:51
[2017-02-14 12:00] VITALS: BP 101/70; PULSE 66; RESP 18; TEMP 98.7; O2SAT 99
[2017-02-14 16:00] VITALS: BP 98/66; PULSE 67; RESP 18; TEMP 97.9; O2SAT 96
[2017-02-14 20:00] VITALS: BP 132/70; PULSE 75; RESP 18; TEMP 99.1; O2SAT 97
[2017-02-15] VITALS: BP 98/59; PULSE 74; RESP 18; TEMP 96.8; O2SAT 94
[2017-02-15 04:00] VITALS: BP 104/55; PULSE 96; RESP 20; TEMP 97.9; O2SAT 95
[2017-02-15 08:00] VITALS: BP 97/66; PULSE 60; RESP 16; TEMP 97.5; O2SAT 96
[2017-02-15] MEDS: SODIUM CHLORIDE 0.9% FLUSH 10 ML FLUSH IV FLUSH SCH ×2 (09:00→21:47)
[2017-02-15 09:12] LABS: AUTOMATED NEUTROPHIL # 3.8 TH/MM3 (1.8-7.7); BASOPHIL # 0.2 TH/MM3 (0-0.2); BASOPHIL % 3.8 % (0.0-2.0); EOSINOPHIL # 0.1 TH/MM3 (0-0.4); EOSINOPHIL % 1.7 % (0.0-4.0); HEMATOCRIT 36.7 % (39.0-51.0); LYMPH % 12.5 % (9.0-44.0); LYMPHOCYTE # 0.7 TH/MM3 (1.0-4.8); MEAN CELL VOLUME 94.6 FL (80.0-100.0); MEAN CORPUSCULAR HEMOGLOBIN 31.9 PG (27.0-34.0); MEAN CORPUSCULAR HGB CONC 33.7 % (32.0-36.0); MONO % 8.8 % (0.0-8.0); NEUT % 73.2 % (16.0-70.0); PLATELET COUNT 78 TH/MM3 (150-450); RED BLOOD COUNT 3.88 MIL/MM3 (4.50-5.90); RED CELL DISTRIBUTION WIDTH 15.1 % (11.6-17.2); WHITE BLOOD COUNT 5.2 TH/MM3 (4.0-11.0)
[2017-02-15 09:15] LABS: HEMO FLAGS AUTO DIFF
[2017-02-15 09:37] LABS: ANION GAP 7 MEQ/L (5-15); AST (GOT) 16 U/L (15-37); BICARBONATE 25.2 MEQ/L (21.0-32.0); BLOOD UREA NITROGEN 25 MG/DL (7-18); CHLORIDE 108 MEQ/L (98-107); GLOMERULAR FILTRATION RATE 89 ML/MIN (>89); POTASSIUM 4.1 MEQ/L (3.5-5.1); SODIUM (NA) 140 MEQ/L (136-145)
[2017-02-15 09:38] LABS: ALT (GPT) 10 U/L (12-78)
[2017-02-15 09:41] LABS: ALKALINE PHOSPHATASE 42 U/L (45-117)
[2017-02-15 10:19] LABS: OVALOCYTES 1+ (NORMAL); PLATELET ESTIMATE SMEAR LOW (NORMAL); PLATELET MORPHOLOGY NORMAL (NORMAL); SCAN/DIFF AUTO DIFF CONFIRMED
--- NOTE | 2017-02-15 10:42 | HHI.PR ---
Subjective Remarks eating. doing well. passing gas Objective Vitals heart reg lung cta abd s/nt/bandage/bs ext no edema Vital Signs Date Time Temp Pulse Resp B/P Pulse Ox O2 Delivery O2 Flow Rate FiO2 02/15/17 08:00 97.5 60 16 97/66 96 02/15/17 04:00 97.9 96 20 104/55 95 02/15/17 01:35 Room Air 02/15/17 00:00 96.8 74 18 98/59 94 02/14/17 20:00 99.1 75 18 132/70 97 02/14/17 16:00 97.9 67 18 98/66 96 02/14/17 12:00 98.7 66 18 101/70 99 02/14/17 02/14/17 02/15/17 14:59 22:59 06:59 Intake Total 960 ml 240 ml Output Total 1800 ml 625 ml Balance -840 ml -385 ml Intake Oral 960 ml 240 ml Output Urine Total 1800 ml 625 ml # Voids 4 # Bowel Movements 0 Result Diagram: 02/15/1761702/15/1718 A/P Problem List: (1) SBO (small bowel obstruction) Status: Acute Plan: Pt is 61 yr old with Nafld Cirrhosis. hx esophageal banding and ascites. Presents with sbo due to umbilical hernia STACIE probably due to dehydration/prerenal cause ( poor po plus his diuretics were increased over past 2 weeks....both lasix/aldactone) ...monitor for ATN or HRS. ekg: sinus. rbbb. coags ok. plt 125 -s/p umbilical incarcerated hernia repair 02/12 doing well post op. renal function improving and pt remains compensated from cardiopulmonary and cirrhosis standpoint. -cont scd's - advance diet per GS -PT and oob today -stopped ivf and resumed lower dose diuretic He will need to f/u with GI soon as he believes they increased his diuretic dose to much on last visit. medically stable for d/c (2) Incarcerated hernia Status: Acute Plan: above (3) Cirrhosis Status: Chronic (4) STACIE (acute kidney injury) Status: Acute Plan: above Wily Stoll MD Feb 15, 2017 10:42
[2017-02-15] MEDS ORDERED: ALDA100T PO (10:44)
[2017-02-15 12:00] VITALS: BP 109/73; PULSE 64; RESP 16; TEMP 97.5; O2SAT 98
--- NOTE | 2017-02-15 14:12 | HHI.PR ---
Subjective Subjective Notes Tolerating reg diet but no BM yet. Objective Vitals/I&O Vital Signs Date Time Temp Pulse Resp B/P Pulse Ox O2 Delivery O2 Flow Rate FiO2 02/15/17 08:00 97.5 60 16 97/66 96 02/15/17 01:35 Room Air 02/12/17 19:32 2.00 Labs Laboratory Tests Test 02/15/17 06:18 White Blood Count 5.2 Red Blood Count 3.88 Hemoglobin 12.4 Hematocrit 36.7 Mean Corpuscular Volume 94.6 Mean Corpuscular Hemoglobin 31.9 Mean Corpuscular Hemoglobin 33.7 Concent Red Cell Distribution Width 15.1 Platelet Count 78 Mean Platelet Volume 9.5 Neutrophils (%) (Auto) 73.2 Lymphocytes (%) (Auto) 12.5 Monocytes (%) (Auto) 8.8 Eosinophils (%) (Auto) 1.7 Basophils (%) (Auto) 3.8 Neutrophils # (Auto) 3.8 Lymphocytes # (Auto) 0.7 Monocytes # (Auto) 0.5 Eosinophils # (Auto) 0.1 Basophils # (Auto) 0.2 CBC Comment AUTO DIFF Differential Comment AUTO DIFF CONFIRMED Platelet Estimate LOW Platelet Morphology Comment NORMAL Ovalocytes 1+ Sodium Level 140 Potassium Level 4.1 Chloride Level 108 Carbon Dioxide Level 25.2 Anion Gap 7 Blood Urea Nitrogen 25 Creatinine 0.87 Estimat Glomerular Filtration 89 Rate Random Glucose 82 Calcium Level 8.0 Total Bilirubin 1.0 Aspartate Amino Transf 16 (AST/SGOT) Alanine Aminotransferase 10 (ALT/SGPT) Alkaline Phosphatase 42 Total Protein 6.3 Albumin 2.0 Date/Time Procedure Status Source Growth 02/11/17 23:45 Urine Culture - Final Complete Urine Clean Catch Enterococcus Faecalis Radiology Last Impressions Abdomen/Pelvis CT 02/11/171924 Signed Impressions: Service Date/Time: Saturday, February 11, 2017 20:57 - CONCLUSION: Incarcerated ventral hernia containing fluid and a loop of small bowel with small bowel obstruction. No free air. Trace free fluid. Liver cirrhosis. Nonobstructing left renal calculi. Small left effusion. Jordi Becerra MD Narrative Exam NAD Abd: soft, inc c/d/i, nondistended A/P Assessment and Plan 61 yo M POD 3 s/p umbilical hernia repair with mesh for incarcerated small bowel. 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 Stable. +flatus. Regular diet. Give milk of mag. Ambulate. LFTs normal. Renal function improved and lasix restarted. Anticipate dc home tomorrow if has BM. Juan Luis Cooper MD Feb 15, 2017 14:12
[2017-02-15] MEDS ORDERED: MAGNESIUM HYDROXIDE SUSP 30 ML CUP PO ONE (14:15)
[2017-02-15 16:00] VITALS: BP 102/65; PULSE 74; RESP 16; TEMP 99; O2SAT 97
[2017-02-15 19:00] VITALS: BP 124/64; PULSE 80; RESP 16; TEMP 97.2; O2SAT 98
[2017-02-15] MEDS: SPIRONOLACTONE 25 MG TAB PO SCH (19:10)
[2017-02-15] MEDS: FUROSEMIDE 20 MG TAB PO SCH (19:11)
[2017-02-16] VITALS: BP 95/66; PULSE 69; RESP 17; TEMP 98.8; O2SAT 97
[2017-02-16 08:00] VITALS: BP 104/66; PULSE 70; RESP 18; TEMP 96.6; O2SAT 96
[2017-02-16] MEDS: FUROSEMIDE 20 MG TAB PO SCH (09:27)
[2017-02-16] MEDS: SODIUM CHLORIDE 0.9% FLUSH 10 ML FLUSH IV FLUSH SCH (09:27)
[2017-02-16] MEDS: SPIRONOLACTONE 25 MG TAB PO SCH (09:27)
--- NOTE | 2017-02-16 11:26 | HHI.DS ---
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 reyes who developed incarceration of his umbilical hernia yesterday morning. He was unable to reduce it and developed abdominal pain. He had nausea and small amount of emesis. He has felt constipated and has not passed flatus. He was evaluated in the emergency department in the umbilical hernia was unable to be reduced. His white blood count was normal with evidence of acute kidney injury on chemistry. CT abdomen and pelvis revealed small bowel incarcerated umbilical hernia causing bowel obstruction. There was a small amount of ascites. He has never had any operations on his abdomen. He has child Pena class B cirrhosis. He states that his meld score is 9, although based on today' s labs it is 17. He is followed by Dr. Talavera in [place] as well as at [facility]. He has had 2 elective paracenteses in the past, most recently 6 weeks ago. He has had banding of esophageal varices but never upper GI bleeding. He states that he has lost 200 pounds since his diagnosis of cirrhosis. CBC/BMP: 02/15/17 0618 02/15/17 0618 Significant Findings Laboratory Tests Test 02/14/17 02/15/17 06:54 06:18 Chloride Level 110 MEQ/L 108 MEQ/L (98-107) (98-107) Blood Urea Nitrogen 26 MG/DL (7-18) 25 MG/DL (7-18) Estimat Glomerular Filtration 70 ML/MIN (>89) Rate Red Blood Count 3.88 MIL/MM3 (4.50-5.90) Hemoglobin 12.4 GM/DL (13.0-17.0) Hematocrit 36.7 % (39.0-51.0) Platelet Count 78 TH/MM3 (150-450) Neutrophils (%) (Auto) 73.2 % (16.0-70.0) Monocytes (%) (Auto) 8.8 % (0.0-8.0) Basophils (%) (Auto) 3.8 % (0.0-2.0) Lymphocytes # (Auto) 0.7 TH/MM3 (1.0-4.8) Platelet Estimate LOW (NORMAL) Ovalocytes 1+ (NORMAL) Calcium Level 8.0 MG/DL (8.5-10.1) Alanine Aminotransferase 10 U/L (12-78) (ALT/SGPT) Alkaline Phosphatase 42 U/L (45-117) Total Protein 6.3 GM/DL (6.4-8.2) Albumin 2.0 GM/DL (3.4-5.0) PE at Discharge NAD Abd: soft, inc c/d/i, nondistended Hospital Course He did very well post op. He tolerated increasing diet, and eventually had a bowel movt. Pain is controlled. Incision is intact and he does not appear to be developing ascites. Renal function normalized and he was started back on diuretics. Pt Condition on Discharge: Good Discharge Disposition: Discharge Home Discharge Instructions DIET: Follow Instructions for: As Tolerated, No Restrictions Activities you can perform: See Additionl Instruction Other Activity Instructions: No heavy lifting. Ok to shower. Follow up Referrals: PCP Follow-up - 2 Weeks with [facility] - 10 Days with Juan Luis Cooper MD Changed Medications: Spironolactone (Aldactone) 100 Mg Tab 50 MG PO BIDPC cirrhosis #0 Ref 0 TAB (Changed from: 100 MG; 60) Continued Medications: Furosemide (Lasix) 40 Mg Tab 40 MG PO BID #60 Ref 0 TAB Discontinued Medications: Nadolol (Nadolol) 20 Mg Tab 25 MG PO DAILY #30 Ref 0 TAB Juan Luis Cooper MD Feb 16, 2017 11:26
[2017-02-16 12:00] VITALS: BP 95/64; PULSE 70; RESP 18; TEMP 97.7; O2SAT 100
== END 2017-02-16 13:08 | disposition home or self-care (01) | DRG 354 ==
LOC: NEPC 19:06 → NEDA 23:30 → N06B 02-12 00:55
PROVIDERS: ADMIT Surgery; ATTEND Surgery
PROC: 0WUF0JZ Supplement Abdominal Wall with Synthetic Substitute, Open Approach (ICD-10-PCS; principal; 2017-02-11)
DX: K42.0 Umbilical hernia with obstruction, without gangrene (principal); N17.9 Acute kidney failure, unspecified; K74.60 Unspecified cirrhosis of liver; I10 Essential (primary) hypertension; E11.9 Type 2 diabetes mellitus without complications; E86.0 Dehydration; I45.10 Unspecified right bundle-branch block; K43.6 Other and unspecified ventral hernia with obstruction, without gangrene; K75.81 Nonalcoholic steatohepatitis (NASH); N20.0 Calculus of kidney; N40.0 Benign prostatic hyperplasia without lower urinary tract symptoms
CPT/HCPCS: 74177; 80048; 80053; 81001; 83605; 84484; 85025; 85610; 85730; 87077; 87086; 87186; 88302; 93005; 96361; 96374; 96375; C1781; J1956; J2250; J2270; J2370; J2405; J3010; J7030; J7040; J7050; Q9967

== ENCOUNTER 2017-04-18 12:04 | Emergency (ER) | payer OTHER ==
[~2017-04-18] VITALS: Ht 180.3 cm; Wt 96.0 kg
[~2017-04-18 12:04] MED LIST changes: +ALDA100T PO; -ATEN1TAB74 PO; -CEPH500C3 PO; -DIOV160T60 PO; +FURO1TAB60 PO; -GLYB5TAB3 PO; -METF-324 PO; -TRAM50 PO
[2017-04-18 12:07] VITALS: BP 96/62; PULSE 76; RESP 14; TEMP 98.6; O2SAT 96
[2017-04-18] MEDS ORDERED: ONDANSETRON HCL 4 MG/2 ML VIAL IV ONE (12:30)
[2017-04-18] MEDS ORDERED: MECLIZINE HCL 25 MG TAB PO ONE (12:30)
--- NOTE | 2017-04-18 12:34 | PD ---
HPI Chief Complaint: Dizziness Time Seen by Provider: 12:18 Travel History International Travel<30 days: No Contact w/Intl Traveler<30days: No Traveled to known affect area: No History of Present Illness HPI This patient complains of dizziness. He has a history of intermittent vertigo. He did have a room spinning sensation today. No syncope or headache or injury. Symptoms severity was moderate. Patient has a history of liver cirrhosis and is on diuretic and was feeling thirsty and is worried that he might be getting dehydrated. Symptoms have no alleviating factors. Dizziness was exacerbated by turning his head in either direction. PFSH Past Medical History Arthritis: No Asthma: No Autoimmune Disease: No Anxiety: No Depression: No Heart Rhythm Problems: No Cancer: No Cardiovascular Problems: Yes High Cholesterol: Yes (RESOLVED R/T WEIGHT LOSS) Chemotherapy: No Chest Pain: No Congestive Heart Failure: No COPD: No Cerebrovascular Accident: No Diabetes: Yes (RESOLVED R/T WEIGHT LOSS) Diminished Hearing: No Endocrine: No GERD: No Genitourinary: No Hiatal Hernia: No Hypertension: Yes Immune Disorder: No Kidney Stones: No Musculoskeletal: Yes Neurologic: No Psychiatric: No Reproductive: No Respiratory: No Migraines: No Radiation Therapy: No Renal Failure: No Seizures: No Sickle Cell Disease: No Sleep Apnea: Yes (NO CPAP) Thyroid Disease: No Ulcer: No Tetanus Vaccination: < 5 Years Influenza Vaccination: Yes ?: Not Past Surgical History Abdominal Surgery: No AICD: No Arteriovenous Shunt: No Cardiac Surgery: No Ear Surgery: No Endocrine Surgery: No Eye Surgery: Yes (BILATERAL CATARACT REMOVAL) Genitourinary Surgery: Yes (LEFT KIDNEY SX, TURP) Gynecologic Surgery: No Insulin Pump: No Joint Replacement: No Oral Surgery: Yes (TONSILLECTOMY) Pacemaker: No Thoracic Surgery: No Tonsillectomy: Yes Other Surgery: Yes (LEFT KIDNEY sugery (tube) A CHILD) Social History Alcohol Use: No Tobacco Use: No (3 pack years) Substance Use: No Allergies-Medications (Allergen,Severity, Reaction): Coded Allergies: No Known Allergies (Unverified , 12/03/13) Reported Meds & Prescriptions Reported Meds & Active Scripts Active Zofran (Ondansetron HCl) 4 Mg Tab 4 Mg PO Q6HR PRN Meclizine (Meclizine HCl) 25 Mg Tab 25 Mg PO TID PRN Aldactone (Spironolactone) 100 Mg Tab 50 Mg PO BIDPC Reported Lasix (Furosemide) 40 Mg Tab 40 Mg PO BID Review of Systems General / Constitutional: No: Fever Eyes: No: Visual changes HENT: Positive: Vertigo, No: Headaches Cardiovascular: No: Chest Pain or Discomfort Respiratory: No: Shortness of Breath Gastrointestinal: Positive: Nausea, No: Abdominal Pain Genitourinary: No: Dysuria Musculoskeletal: No: Pain Skin: No Rash Neurologic: Positive: Dizziness, No: Weakness Psychiatric: No: Depression Endocrine: No: Polydipsia Hematologic/Lymphatic: No: Easy Bruising Physical Exam Narrative GENERAL: Well-nourished, well-developed patient in no apparent distress. SKIN: Focused skin assessment reveals no rash and nodules. Skin is Warm and dry. HEAD: Atraumatic. Normocephalic. EYES: Pupils equal and round. No scleral icterus. No injection or drainage. ENT: No nasal bleeding or discharge. Mucous membranes pink and moist. NECK: Trachea midline. No JVD. CARDIOVASCULAR: Regular rate and rhythm. No murmur appreciated. RESPIRATORY: No accessory muscle use. Clear to auscultation. Breath sounds equal bilaterally. GASTROINTESTINAL: Abdomen soft, non-tender, nondistended. Hepatic and splenic margins not palpable. MUSCULOSKELETAL: No obvious deformities. No clubbing. No cyanosis. No pitting edema. NEUROLOGICAL: Awake and alert. No obvious cranial nerve deficits. Motor grossly within normal limits. Normal speech. PSYCHIATRIC: Appropriate mood and affect; insight and judgment normal. Data Data Last Documented VS Vital Signs Date Time Temp Pulse Resp B/P (MAP) Pulse Ox O2 Delivery O2 Flow Rate FiO2 04/18/17 12:18 71 18 98 Room Air 04/18/17 12:07 98.6 96/62 (73) Orders Orders Iv Access Insert/Monitor (04/18/17 12:30) Complete Blood Count With Diff (04/18/17 12:30) Basic Metabolic Panel (Bmp) (04/18/17 12:30) Ondansetron Inj (Zofran Inj) (04/18/17 12:30) Meclizine (Antivert) (04/18/17 12:30) Labs Laboratory Tests Test 04/18/17 12:30 White Blood Count 3.9 TH/MM3 Red Blood Count 4.03 MIL/MM3 Hemoglobin 13.3 GM/DL Hematocrit 38.8 % Mean Corpuscular Volume 96.4 FL Mean Corpuscular Hemoglobin 33.0 PG Mean Corpuscular Hemoglobin Concent 34.3 % Red Cell Distribution Width 15.4 % Platelet Count 94 TH/MM3 Mean Platelet Volume 9.0 FL Neutrophils (%) (Auto) 76.9 % Lymphocytes (%) (Auto) 12.0 % Monocytes (%) (Auto) 9.5 % Eosinophils (%) (Auto) 1.0 % Basophils (%) (Auto) 0.6 % Neutrophils # (Auto) 3.0 TH/MM3 Lymphocytes # (Auto) 0.5 TH/MM3 Monocytes # (Auto) 0.4 TH/MM3 Eosinophils # (Auto) 0.0 TH/MM3 Basophils # (Auto) 0.0 TH/MM3 CBC Comment AUTO DIFF Blood Urea Nitrogen 33 MG/DL Creatinine 1.03 MG/DL Random Glucose 127 MG/DL Calcium Level 8.8 MG/DL Sodium Level 136 MEQ/L Potassium Level 3.8 MEQ/L Chloride Level 103 MEQ/L Carbon Dioxide Level 22.3 MEQ/L Anion Gap 11 MEQ/L Estimat Glomerular Filtration Rate 73 ML/MIN MDM Medical Decision Making Medical Screen Exam Complete: Yes Emergency Medical Condition: Yes Medical Record Reviewed: Yes Differential Diagnosis Positional vertigo, dehydration, labyrinthitis, cardiac arrhythmia Narrative Course I have reviewed the patient's electronic medical record. Reviewed his medical consultation from Dr. Stoll from his most recent inpatient stay IV placed Patient is neurologically intact CBC shows minor abnormalities as expected for cirrhosis patient Metabolic profile shows normal electrolytes and creatinine Blood pressure is 109 systolic which is good for him. Usually is in the 90s. I gave him a dose of IV Zofran and meclizine He feels better on recheck Stable for outpatient follow-up. I prescribed him both Zofran and meclizine to use as needed and warned her about potential sedation Diagnosis Primary Impression: Positional vertigo Qualified Codes: H81.10 - Benign paroxysmal vertigo, unspecified ear Additional Impression: Cirrhosis Qualified Codes: K74.69 - Other cirrhosis of liver Additional Instructions: The patient was advised to follow up with their physician and return if they worsen. The patient was warned about potential sedation for the medications they will receive on prescription. Med/Other Pt SpecificInfo: Prescription(s) given Scripts Ondansetron (Zofran) 4 Mg Tab 4 MG PO Q6HR Y for NAUSEA OR VOMITING, #15 TAB 0 Refills Prov: Wily Hutchinson MD 04/18/17 Meclizine (Meclizine) 25 Mg Tab 25 MG PO TID Y for VERTIGO, #15 TAB 0 Refills Prov: Wily Hutchinson MD 04/18/17 Disposition: 01 DISCHARGE HOME Condition: Stable Wily Hutchinson MD Apr 18, 2017 12:34
[2017-04-18 12:46] LABS: BASOPHIL % 0.6 % (0.0-2.0); HEMATOCRIT 38.8 % (39.0-51.0); LYMPHOCYTE # 0.5 TH/MM3 (1.0-4.8); MEAN CELL VOLUME 96.4 FL (80.0-100.0); MEAN CORPUSCULAR HGB CONC 34.3 % (32.0-36.0); MONO % 9.5 % (0.0-8.0); NEUT % 76.9 % (16.0-70.0); PLATELET COUNT 94 TH/MM3 (150-450); RED BLOOD COUNT 4.03 MIL/MM3 (4.50-5.90); RED CELL DISTRIBUTION WIDTH 15.4 % (11.6-17.2); WHITE BLOOD COUNT 3.9 TH/MM3 (4.0-11.0)
[2017-04-18 12:53] LABS: HEMO FLAGS AUTO DIFF
[2017-04-18 13:02] LABS: BICARBONATE 22.3 MEQ/L (21.0-32.0); POTASSIUM 3.8 MEQ/L (3.5-5.1)
[2017-04-18] MEDS ORDERED: MECL-62 PO (13:21)
[2017-04-18] MEDS ORDERED: ZOFR4TAB PO (13:21)
[2017-04-18 13:29] LABS: PLATELET ESTIMATE SMEAR LOW (NORMAL); PLATELET MORPHOLOGY NORMAL (NORMAL); SCAN/DIFF AUTO DIFF CONFIRMED
[2017-04-18 14:03] VITALS: BP 102/68; PULSE 72; RESP 14; O2SAT 99
== END 2017-04-18 14:04 | disposition home or self-care (01) ==
LOC: NEPE 12:04
DX: H81.10 Benign paroxysmal vertigo, unspecified ear (principal); K74.69 Other cirrhosis of liver; Z87.891 Personal history of nicotine dependence
CPT/HCPCS: 80048; 85025; 96374; 96375; 99284; J2405